=== PATIENT | male | born 1980 | race Caucasian/White ===

== ENCOUNTER 2025-08-24 14:56 | Outpatient (AMB) | payer OTHER, SELFPAY ==
--- NOTE | 2025-08-24 15:04 | MHC.OFFVIS ---
Intake Visit Reasons: second opiniononpostvasectomycomplications SET UA Intake Note: New Patient is present for 2nd Opinion Vasectomy complications Urology Rx:none Blood Thinners:none Imaging completed: none Rental Car Ferry Driver Required: No Accompanied by: Self / Same As Patient Allergies No Known Allergies Allergy (Verified 08/24/25 15:08) HPI Comments Details: Shane is a pleasant male. He is a patient of Dr. Lorenzana. He is seen for the following urologic conditions - post vasectomy pain Post vasectomy pain Vasectomy performed May 2024 Primarily describes intermittent pain the few minutes before and after climax Recurs on the left side Discussed physiology behind ejaculation On exam has increased sensitivity over the area vasectomy on the left side Options presented including conservative therapy versus microscopic inguinal denervation Review in six-month Review of Systems Const Denies chills and Denies fever(s) Card Reports no additional complaints and Denies syncope Resp Denies cough GI Denies abdominal pain and Denies heartburn Reports as per HPI and Denies change in libido Neuro Denies syncope Psych Denies change in libido Endo Denies change in libido Physical Exam Const General: cooperative, healthy appearing, comfortable and no acute distress Orientation/consciousness: patient oriented x3 HEENT Face and sinus: Yes normal facial exam Mouth: moist mucous membranes Neck Neck: Yes normal visual inspection, Yes full ROM and Yes trachea midline Chest Chest palpation & inspection: normal inspection of the chest Resp Effort & Inspection: normal respiratory effort, able to speak in complete sentences and no respiratory distress GI Inspection: Yes normal to inspection Back/Spine/Pelvis Cervical Spine: normal cervical lordosis Thoracic/Lumbar Spine: thoracic and lumbar spine normal to inspection Skin General skin exam: no rashes or lesions noted Neuro General: patient oriented x3, gait normal, tone normal and moves all extremities Extrem General: Yes normal to inspection and Yes capillary refill normal Results AMB Urinalysis, Automated UA Leukoctes 0 James/uL Last Edit by AMY Dotson on 08/24/25 15:17 UA Nitrite Negative Last Edit by AMY Dotson on 08/24/25 15:17 UA Urobilinogen 0.2 mg/dL Last Edit by AMY Dotson on 08/24/25 15:17 UA Protein 0 mg/dL Last Edit by AMY Dotson on 08/24/25 15:17 UA pH 6.0 Last Edit by Janell Colon, CCMA on 08/24/25 15:17 UA Blood 0 Jeremiah/uL Last Edit by Janell Colon, [facility] on 08/24/25 15:17 UA Specific [place] 1.020 Last Edit by Janell Colon, [facility] on 08/24/25 15:17 UA Ketone Negative Last Edit by Janell Colon, [facility] on 08/24/25 15:17 UA Bilirubin 0 mg/dL Last Edit by Janell Colon, [facility] on 08/24/25 15:17 UA Glucose 0 mg/dL Last Edit by Janell Colon, [facility] on 08/24/25 15:17 Results Reviewed Results Reviewed: Laboratory Last Values Urine pH (Auto) 6.0 08/24/25 15:10 Specific [place] (Auto) 1.020 08/24/25 15:10 Urine Protein (Auto) 0 mg/dL 08/24/25 15:10 Glucose (UA)(Auto) 0 mg/dL 08/24/25 15:10 Urine Ketones (Auto) Negative 08/24/25 15:10 Urine Blood (Auto) 0 Jeremiah/uL 08/24/25 15:10 Urine Nitrite (Auto) Negative 08/24/25 15:10 Urine Bilirubin (Auto) 0 mg/dL 08/24/25 15:10 Urine Urobilinogen (Auto) 0.2 mg/dL 08/24/25 15:10 Leukocyte Esterase (Auto) 0 James/uL 08/24/25 15:10 Assessment & Plan Assessment & Plan (1) Deep inguinal pain, left: Code(s): R10.32 - Left lower quadrant pain Category: Medical Plan Six-month follow-up Orders: Orders AMB Urinalysis Automated Today N13.8 - Other obstructive and reflux uropathy, N40.1 - Benign prostatic hyperplasia with lower urinary tract symptoms Patient Instructions: This note is constructed using voice recognition software. While every effort has been made to ensure accuracy hypoid gear tester errors may have been included. Imaging studies, laboratory and physical exam results were discussed and reviewed in detail. No major barriers to patient understanding were identified. An opportunity to ask questions regarding the treatment plan was provided. All questions were answered. The patient expressed understanding and agreement with the above treatment plan. The patient is aware they should contact our office by phone for worsening of their current condition or the appearance of new urologic symptoms. Compliance is encouraged with any medications and followup testing that is ordered. It is a privilege to participate in the urologic care of your patient. If you have any questions or concerns regarding treatment for the above conditions, or other urologic issues, please do not hesitate to contact me. The office telephone contact is [phone]. Sincerely, Dr Kehinde Lloyd MD, [facility] - Urology Compassionate Specialist Care for the Genitourinary System Coding Level of Care Code New Pt Level 3 (51935) Diagnoses Deep inguinal pain, left R10.32
--- OUTSIDE RECORDS SUMMARY | 2025-08-24 19:17 | XMS_ITS | Encounter Summary ---
Author Organization [facility] Address [address] [place] [phone] Phone Care Team Providers Care Cardiac Rn Name Role Phone Rickey Lorenzana DO Primary Care Provider Encounter Details Date Type Department Care Team (Late st Contact Info) Description 07/14/2018 Procedure Pass [facility] Endoscopy Admitting Dept Virtual Department [address] [place] [id number] Social History Tobacco Use Types Packs/Day Years Used Date Smoking Tobacco: Never Smokeless Tobacco: Never Alcohol Use Standard Drinks/Week Comments Yes 0 (1 standard drink = 0.6 oz pur e alcohol) 3-4 drinks per week Sex and Gender Information Value Date Recorded Sex Assigned at Male 06/27/2018 8:21 PM EDT Legal Sex Male 9:23 PM EDT Gender Identity Male 06/27/2018 8:21 PM EDT Sexual Orientation Straight 06/27/2018 8: 21 PM EDT documented as of this encounter Plan of Treatment Upcoming Encounters Date Type Department Care Team (Late st Contact Info) Description 10/28/2025 2:00 PM EST Office Visit [facility] [address] [place] [phone] Shannan Nagel CNP [address] [place] [address] documented as of this encounter Visit Diagnoses Not on filedocumented in this encounter Care Teams Cardiac Rn Relationship Specialty Start Date End Date Rickey Lorenzana DO [email or web address] PCP - General Internal Medicine 06/27/18 documented as of this encounter Additional Source Comments The information contained in this document represents components of the legal health record. It is not the complete legal health record.[facility]
--- OUTSIDE RECORDS SUMMARY | 2025-08-24 19:17 | XMS_ITS | Clinical Summary ---
Author Organization [facility] Address [address] [place] [phone] Phone Care Team Providers Care Entertainment Usher Name Role Phone Rickey Lorenzana Primary Care Provider [phone] Allergies No known active allergies Medications fluticasone propionate (FLOVENT HFA) 110 mcg/actuation inhaler Flovent HFA 110 mcg/actuation aerosol inhaler Active gemfibrozil (LOPID) 600 MG tablet gemfibrozil 600 mg tablet Active montelukast (SINGULAIR) 10 mg tablet montelukast 10 mg tablet Active albuterol 90 mcg/actuation inhaler ProAir HFA 90 mcg/actuation aerosol inhaler Active omeprazole (PRILOSEC) 20 MG capsule Take 1 capsule by mouth daily. Active cholecalciferol (VITAMIN D3) 2,000 unit capsule Take 1 capsule by mouth daily. Active Immunizations Immunization Administration Dates Next Due COVID-19 (Pre-07/01) Pfizer Vaccine, mRNA, PF 05/30/2022,06/29/2021,12/14/2020,2020 Influenza Quadrivalent MDCK Preservative Free IM 06/22/2020,07/04/2018 Influenza Quadrivalent Prese rvative Free IM 09/16/2016 Influenza Quadrivalent w/ Preservative IM 06/29/2022,06/29/2021,07/22/2018 Td (adult),2 Lf Tetanus Toxo id, PF, Adsorbed 02/08/2010 Tdap 11/19/2007 Social History Tobacco Use Types Packs/Day Years Used Date Smoking Tobacco: Never Smokeless Tobacco: Never Alcohol Use Standard Drinks/Week Comments Yes 0 (1 standard drink = 0.6 oz pur e alcohol) 3-4 drinks per week Education Answer Date Recorded Are you interested in more education? Not on melissa e 01/04/2023 Are you concerned about learning? Not on file 01/04/2023 No 01/04/2023 No 01/04/2023 Digital Access Answer Date Recorded No 02/01/2023 No 02/01/2023 Reliable internet access at home? Not on file 02/01/2023 Device with a working camera? Not on file Sex and Gender Information Value Date Recorded Sex Assigned at Male 06/27/2018 8:21 PM EDT Legal Sex Male 9:23 PM EDT Gender Identity Male 06/27/2018 8:21 PM EDT Sexual Orientation Straight 06/27/2018 8: 21 PM EDT Last Filed Vital Signs Vital Sign Reading Time Taken Comments Blood Pressure 120/70 02/03/2025 3:36 PM EDT Pulse 90 02/03/2025 3:36 PM EDT Temperature 36.6 C (97.8 F) 02/03/2025 3:36 PM EDT Respiratory Rate 16 07/14/2018 2:52 PM EST Oxygen Saturation 97% 02/03/2025 3:36 PM EDT Inhaled Oxygen Concentration - - Weight 112.5 kg (248 lb) 07/14/2018 1:20 PM EST Height 182.9 cm (6') 07/14/2018 1:20 PM EST Body Mass Index 33.63 07/14/2018 1:20 PM EST Plan of Treatment Upcoming Encounters Date Type Department Care Team (Late st Contact Info) Description 10/28/2025 2:00 PM EST Office Visit [facility] [address] [place] [phone] Shannan Nagel CNP [address] [place] [address] [email or web address] Health Maintenance Due Date Last Done Comments DEPRESSION SCREENING 1991 HEPATITIS C SCREENING 1997 HIV ONE-TIME SCREENING (18-65 YEARS) 1997 Adult Td,Tdap Booster 02/09/2020 02/08/2010, 008 COLOGUARD 2024 COLONOSCOPY 2024 COLORECTAL CANCER SCREENING 2024 FIT TEST 2024 FOBT 2024 SIGMOIDOSCOPY 2024 VIRTUAL COLONOSCOPY 2024 INFLUENZA VACCINE (#1) 2025 , 06/29/2021, 06/22/2020, Additional history exists LIPID PANEL 05/03/2025 05/03/2020 COVID-19 VACCINE ( season) 2025 05/30/2022, 06/29/2021, 12/14/2020, Additional history exists SMOKING STATUS SCREENING (Once After 26 Yrs) Completed 02/17/2025 HEPATITIS A VACCINES Aged Out No long er eligible based on patient's age to complete this topic HIB VACCINES Aged Out No longer eligi ble based on patient's age to complete this topic MENINGOCOCCAL VACCINES (ACWY) Aged Out No longer eligible based on patient's age to complete this topic MENINGOCOCCAL VACCINES (B) Aged Out N o longer eligible based on patient's age to complete this topic PNEUMOCOCCAL VACCINES (0-49 years) Aged Out No longer eligible based on patient's age to complete this topic Medical Devices Implanted Type Area Paraplanner Device Identifier Shelf Expiration Date Model / Serial / Lot Wrist Description:Screw left wrist Procedures Procedure Name Priority Date/Time Associated Diagnosis Comments LIPID PANEL Routine 05/03/2020 8:24 AM EDT Hyperlipidemia, unspecified hyperlipidemia type Vitamin D deficiency Gastroesophageal reflux disease, esophagitis presence not specified from Last 3 Months or Most Recently Relevant to Health Maintenance Results * Lipid panel (05/03/2020 8:24 AM EDT) HDL 37 mg/dL [facility] Comment: Interpretation <40 mg/dL: Low HDL cholesterol (major risk factor for CHD) Greater than or equal to 60 mg/dL: High HDL cholesterol ( negative risk factor for CHD) HDL - cholesterol is affected by a number of factors, e.g. smoking, excerise, hormones, sex and age. CHOLESTEROL 173 0 - 240 mg/dL [facility] TRIGLYCERIDES 153 30 - 160 mg/dL [facility] LDL 105 50 - 129 mg/dL [facility] Comment: LDL levels in terms of risk for coronary heart disease: <100 mg/dL: Optimal 100-129 mg/dL: Near or above optimal 130-159 mg/dL: Borderline high 160-189 mg/dL: High >190 mg/dL: Very High CARDIAC RISK RATIO 4.7 3.4 - 5.0 C [facility] Blood 05/03/2020 8:24 AM EDT 05/03/2020 8:27 AM EDT us Shannan DONATO LAB BLOOD BKR ORDERABLES Fi nal Result [address] [phone] from Last 3 Months or Most Recently Relevant to Health Maintenance [facility] EPO [employer] [facility] POS EPO [facility] EPO [employer] H[employer] POS EPO Care Teams Entertainment Usher Relationship Specialty Start Date End Date Rickey Lorenzana DO [email or web address] PCP - General Internal Medicine 06/27/18 Additional Source Comments The information contained in this document represents components of the legal health record. It is not the complete legal health record.[facility]
--- OUTSIDE RECORDS SUMMARY | 2025-08-24 19:18 | XMS_ITS | Data Portability ---
Author Organization [facility], Telehealth Patient Home Address [address] [place] [address] Assessment No assessment recorded. Plan of Treatment Reminders Order Date Submit Date Provider Last Modified By Organization Details Last Modified Time Details Appointments None recorded. Lab CMP, serum or plasma [facility], [place], [address], 15:55:19 lipid panel, blood 2021 [facility], [place], [address], 15:55:19 CBC w/ auto diff 2021 [facility], [place], [address], 15:55:19 vitamin D, 25-hydroxy , total, serum 2021 [facility], [place], [address], 15:55:18 lipid panel, serum 2021 [facility], [place], [address], 16:15:09 CMP, serum or plasma 2021 [facility], [place], [address], 2 16:15:09 CBC w/ auto diff 2021 022 [facility], [place], [address], 2 16:15:09 PSA, serum or plasma 2021 022 [facility], [place], [address], 2 16:15:08 hemoglobin A1C/hemogl obin total, QN, blood 2021 022 [facility], [place], [address], 2 16:15:09 Referral urologist referral 2024 025 elida Lloyd MD, [address] [place] [address], [address], 5 08:40:23 general surgeon referral 2024 025 elida Leo MD, [address] [place] [address], [address], 5 09:36:24 urologist referral 2023 024 elida Allison MD, [address] [place] [address], [address], 4 08:33:32 urologist referral 2021 022 [email or web address] 10 [facility], [address] [place] [address], [address], 2 09:35:51 orthopedic surgeon referral 2021 022 [email or web address] 10 [facility], [address] [place], [address], 2 09:35:49 Procedures None recorded. Surgeries None recorded. Imaging XR, knee, 3 view 2024 025 [facility] Central Scheduling (Not Breast), [address] [place], [address], 5 08:15:21 Medication Orders clotrimazo le-betamet hasone 1 %-0.05 % topical cream 2024 025 [facility]/Pharmacy #5, [address] [place], [address], 5 11:13:46 albuterol sulfate HFA 90 mcg/actuat ion aerosol inhaler 2024 025 [facility]/Pharmacy #2024, [address] [place], [address], 5 14:34:39 triamcinol one acetonide 0.1 % topical cream 2023 024 [facility]/Pharmacy #2024, [address] [place], [address], 4 11:56:34 amoxicilli n 875 mg tablet 2023 025 [facility]/Pharmacy #2024, [address] [place], [address], 5 14:16:32 Flovent HFA 110 mcg/actuat ion aerosol inhaler 2021 022 [facility]/Pharmacy #0447, [address] [place] [address], [address], 3 10:04:16 gemfibrozi l 600 mg tablet 2021 022 [facility]/Pharmacy #0447, [address] [place] [address], [address], 2 15:57:54 Flovent HFA 110 mcg/actuat ion aerosol inhaler 2021 022 [email or web address] [facility]/Pharmacy #2024, [address] [place], [address], 3 10:04:16 montelukas t 10 mg tablet 2021 022 ABILIO [facility]/Pharmacy #2024, [address] [place], [address], 2 16:10:02 Patient TargetsNo targets recorded. Patient InstructionsNo instructions recorded. Reason for Referral Orthopedic Surgeon Referral for Tear of meniscus of knee left lateral mensicus tear, continued pain on the left side for three years Referring Physician: Shannan Cruz, Internal Medicine, Encounter Date: 05/29/2022 Urologist Referral for Vasec shani requested would like to discuss getting a vasectomy Referring Physician: Shannan Cruz [facility], Encounter Date: 05/29/2022 Urologist Referral for Vasec shani requested would like a vasectomy Referring Physician: Shannan Cruz [facility], Encounter Date: 01/21/2024 General Surgeon Referral for Mass of head cyst on the head, would like to have it removed Referring Physician: Shannan [facility], Encounter Date: 11/13/2024 Urologist Referral for 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 Problems Name Problem SNOMED Code Status Onset Date Resolution Date Notes Provider Name and Address Organization Details Recorded Time Asthma 100526660 Active 2017 Not Available [facility] 3 14:13:36 Hyperchol esterolem ia 29708810 Active 2017 Not Available [facility] 3 14:13:35 Vitamin D deficienc y 32157694 Active 2017 Not Available [facility] 3 14:13:36 Tear of meniscus of knee 339771075 Active 2021 [facility] Available [facility] 3 14:13:36 Hyperlipi demia 73277619 Active 2021 Not Available [facility] 3 14:13:36 COVID-19 516949841 Active 2022 Not Available [facility] 3 14:13:36 Generaliz ed rash 250252322 Active 2023 TANMAY BROWN [address] [place] [address], [address], [facility] 4 11:46:57 Celluliti s 348934426 Active 2023 TANMAY BROWN [address] [place] [address], [address], [facility] 4 11:47:44 Internal hemorrhoi ds 35379630 Active 2023 TANMAY BROWN [address] [place] [address], [address], [facility] 4 11:50:32 Pain of right knee joint 912475703160 100 Active 2024 TANMAY BROWN [address] [place] [address], [address], [facility] 5 14:32:01 Mass of head 340319813 Active 2024 TANMAY BROWN [address] [place] [address], [address], [facility] 5 14:35:19 Pruritic dermatiti s Active 2024 TANMAY BROWN [address] [place] [address], [address], [facility] 5 11:12:21 Open wound of penis 500347730 Active 2024 TANMAY BROWN [address] [place] [address], [address], [facility] 11:15:25 Problem Notes None recorded. Medical Equipment None Reported. Allergies No known drug allergies Medications Name Sig Start Date Stop Date Status Note LastModified by Organization Details LastModified Time doxycycline hyclate 100 mg capsule Take 1 capsule twice a day by oral route. 02/18 completed Not Available Not Available Not Available tramadol 50 mg tablet TAKE 1 TABLET BY MOUTH EVERY 6 HOURS NEEDED 11/13 completed Not Available Not Available Not Available triamcinolo ne acetonide 0.1 % topical cream APPLY THIN COAT TO AFFECTED AREA TWICE A DAY active Not Available Not Available No t Available amoxicillin 875 mg tablet TAKE 1 TABLET BY MOUTH EVERY 12 HOURS FOR 7 DAYS 11/13 completed Not Available Not Available Not Available gemfibrozil 600 mg tablet TAKE 1 TABLET BY MOUTH TWICE A DAY 2024 active Not Available Not Available Not Avai lable clotrimazol e-betametha sone 1 %-0.05 % topical cream PLEASE SEE ATTACHED FOR DETAILED DIRECTION S active Not Available Not Available No t Available Qvar 40 mcg/actuati on Metered Aerosol oral inhaler 12/09 completed Not Available Not Available Not Available omeprazole 20 mg capsule,del ayed release TAKE 1 CAPSULE BY MOUTH EVERY DAY active Not Available Not Available No t Available montelukast 10 mg tablet TAKE 1 TABLET BY MOUTH EVERY DAY active Not Available Not Available No t Available albuterol sulfate HFA 90 mcg/actuati on aerosol inhaler TAKE 2 PUFFS BY MOUTH EVERY 4 HOURS NEEDED active Not Available Not Available No t Available Vitamin D 50,000 unit capsule active Not Available Not Available Not Available Flovent HFA 110 mcg/actuati on aerosol inhaler 04/22 completed Not Available Not Available Not Available multivitami n daily active OTC Not Available Not Available Not Available Advair HFA 115 mcg-21 mcg/actuati on aerosol inhaler Inhale 2 puffs twice a day by inhalatio n route. 2022 active Not Available Not Available Not Avai lable budesonide- formoterol HFA 160 mcg-4.5 mcg/actuati on aerosol inhaler INHALE 1 PUFF BY MOUTH EVERY DAY active Not Available Not Available No t Available Vitamin D3 50 mcg (2,000 unit) capsule Take 1 unit every day by oral route. active Not Available Not Available No t Available Qvar RediHaler 40 mcg/actuati on HFA breath activated aerosol 2 puffs BID 02/18 completed Not Available Not Available Not Available [employer] COVID-19 Ag Self Test kit TEST DIRECTED TODAY 02/26 completed Not Available Not Available Not Available Paxlovid 300 mg (150 mg x 2)-100 mg tablets in a dose pack TAKE 3 TABLETS BY MOUTH TWICE A DAY DIRECTED FOR 5 DAYS 04/22 completed Not Available Not Available Not Available Vitals Date Recorded Body height Body mass index (BMI) Body weight Heart rate Oxygen saturation Systolic And Diastolic Provider Name and Address Organization Details Last Updated DateTime 180.34 cm 36.5 kg/m2 496539. 2 g 89 /min 96 % 130/80 mm[Hg] Lola Bourgeois [facility] 14:17:51 Date Recorded Body height Oxygen saturation Heart rate Systolic And Diastolic Provider Name and Address Organization Details Last Updated DateTime 12/12/2021 181.61 cm 95 % 84 /min 130/80 mm[Hg] Cady Mercedes [facility] 12/12/2021 15:45:33 Date Recorded Body weight Heart rate Oxygen saturation Systolic And Diastolic Provider Name and Address Organization Details Last Updated DateTime 01/21/2024 150689.08 g 103 /min 98 % 136/84 mm[Hg] Kami Edgar [facility] 01/21/2024 11:20:22 Date Recorded Body height Body weight Heart rate Oxygen saturation Systolic And Diastolic Provider Name and Address Organization Details Last Updated DateTime 04/16/2025 180.34 cm 260551.3 9 g 90 /min 95 % 148/84 mm[Hg] Kami Edgar [facility] 11:02:38 Date Recorded Body height Body mass index (BMI) Body weight Oxygen saturation Heart rate Systolic And Diastolic Provider Name and Address Organization Details Last Updated DateTime 181.61 cm 35.6 kg/m2 102171. 14 g 98 % 85 /min 130/74 mm[Hg] Cady Mercedes [facility] 2 15:40:37 Social History Question Answer Notes LastModified by Organizat ion Details LastModified Time Tobacco Smoking Status Former Smoker Not Available [facility] 07/12/2020 03:36:23 What Was The Date Of Your Most Recent Tobacco Screening? 11/13/2024 [email or web address] Information not available 11/13/2024 Sex: Unknown Functional Status None recorded. Mental Status None recorded. Family History Nothing Reported. Medical History No medical history recorded. Immunizations Vaccine Type Date Status Note Provider Nam e and Address Organization Details Recorded Time COVID-19, mRNA, LNP-S, PF, 30 mcg/0.3 mL dose 1 completed [facility] 12/11/2021 11:17:37 COVID-19, mRNA, LNP-S, PF, 30 mcg/0.3 mL dose 1 completed Cady ku [facility] 12/11/2021 11:17:45 COVID-19, mRNA, LNP-S, PF, 30 mcg/0.3 mL dose 1 completed [facility] 12/11/2021 11:17:52 Influenza, split virus, quadrivalent, preservative 1 completed [facility] 12/11/2021 11:18:06 COVID-19, mRNA, LNP-S, PF, 30 mcg/0.3 mL dose 2 completed Rickey Lorenzana, [address], [place], [address] 06/03/2022 15:21:41 Influenza, split virus, quadrivalent, preservative 2 completed [facility] 07/04/2022 07:56:23 SARS-COV-2 (COVID-19) vaccine, UNSPECIFIED 3 [facility] 06/18/2023 08:41:54 influenza nasal, unspecified formulation 3 completed [facility] 06/18/2023 08:42:07 Influenza, split virus, quadrivalent, preservative 8 completed [facility] 10/01/2018 16:01:51 Influenza, split virus, quadrivalent, preservative 0 completed Rickey Lorenzana [address], [address], [facility] 06/25/2020 08:52:48 Past Encounters Encounter ID Performer Location Encounter Start Date Encounter Closed Date Diagnosis/Indication Diagnosis SNOMED-CT Code Diagnosis ICD10 Code Diagnosis IMO Codes Diagnosis Note [id number] Rickey Galeano Salomón [facility] [address] [facility],[place] [address] 01/08/2018 13:34:23 01/08/2018 14:00:55 Infected insect bite 819987771 L08.9 call for any concerns [id number] Rickey Lorenzana [facility] [address],[place] [address] 02/18/2018 09:26:27 02/18/2018 11:27:38 Mild intermittent asthma 998914025 J45.20 stable Hypertriglyceridemia 302 040445 E78.2 pt will begin after vacation to [place] Vitamin D deficiency 347 51042 E55.9 finish 12 week series high dose vitamin D, then we will recheck , will need OTC 2,000 IU daily [id number] Rickey PalafoxTye Lorenzana [facility] [address] [facility] [address] 07/04/2018 14:19:13 07/04/2018 16:22:11 Vitamin D deficiency 18621540 E55.9 to take 2,000 IU daily Hypercholesterolemia 136 25698 E78.00 triglyceri nella from 340 to 94 follow 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 [id number] Rickey PalafoxTye Lorenzana [facility] [address] [facility] [address] 10/01/2018 15:58:27 10/03/2018 11:23:44 Vitamin D deficiency 01507107 E55.9 labs prior to next visit/ needs to find new lab, [facility] [place] [employer] Hypercholesterolemia 136 27664 E78.00 Terminal e sophageal web 88700114 K22.2 s/p dilitation , no problems Asthma 722465017 J45.90 9 well controlled [id number] Rickey Lorenzana [facility] [address] [facility],[place] [address] 06/19/2019 11:01:43 06/19/2019 11:31:47 Hypercholesterolemia 25115231 E78.00 familial hypertrigl yceridemia on gemfibrozi l Asthma 613014928 J45.90 9 Vitamin D deficiency 347 15651 E55.9 Gastroesop hageal reflux disease 696666614 K21.9 Body mass index 30+ - obesity 611279252 Z68.33 Blood pres sure above reference range 50442518 R03.0 mild htn continue healthy diet and exercise and edwin loss and recheck in 6 months [id number] Rickey Lorenzana [facility] [address] [facility],[place] [address] 05/06/2020 14:35:27 05/06/2020 16:11:57 Asthma 703896150 J45.909 stable Hypercholesterolemia 136 39919 E78.00 stable Lateral epicondylitis 20 4935934 M77.10 will manage at home conservati vely and call if an issue or worse [id number] Rickey Lorenzana [facility] [address] [facility],[place] [address] 02/03/2021 13:16:53 02/03/2021 15:36:59 Active or passive immunization 881538511 Z23 advised Adult heal th examination 253290954 Z00.00 BP is fine needs fu BW Asthma 330119176 J45.90 9 stable Pain in left knee 783045 1576 11931 M25.562 will fu if it continues [id number] Rickey Lorenzana [facility] [address] [facility],[place] [address] 12/12/2021 15:35:51 12/13/2021 13:54:22 Asthma 785468828 J45.909 stable Hypercholesterolemia 136 54736 E78.01 needs recheck [id number] Rickey Lorenzana [facility] [address] [facility],[place] [address] 05/29/2022 15:34:48 05/30/2022 09:36:56 Active or passive immunization 663897192 Z23 advised Adult heal th examination 559123739 Z00.00 BP is fine needs fu BW Tear of me niscus of knee 172262438 S83.262A will fu with ortho referral Hyperlipidemia 94010207 E78.2 will send in refill Vasectomy requested 1838 79346 Z30.2 will set up with urology Asthma 371555343 J45.90 9 stable [id number] Rickey Lorenzana [facility] [address] [facility],[place] [address] 01/21/2024 11:07:03 01/21/2024 13:37:35 Depression screening 411993536 Z13.31 stable Generalized rash 0372819 06 R21 will start on combinatio n topical treatment Cellulitis 167932554 L03 .115 Internal hemorrhoids 904 16357 K64.8 Vasectomy requested 1838009 Z30.2 Dermoid cyst of head 830 047544 D36.7 [id number] [facility] [address] [facility],[place] [address] 11/13/2024 14:09:49 11/13/2024 15:40:29 Pain of right knee joint 6437535217 69465 M25.561 hx of mensicus tear in the L kneefeels the same, with instabilit y and medial joint line pain Asthma 847697646 J45.40 stable Hyperlipidemia 28381829 E78.2 no issues, tolerates med well Mass of head 573964786 R 22.0 will set up with gen surg referral [id number] [facility] [address] [facility],[place] [address] 04/16/2025 10:48:22 04/16/2025 11:40:58 Pruritic dermatitis 5543475618 L30.8 564 set up with topicaland fu in a few weeks to assess effectiven ess Open wound of penis 2103 02112 S31.20XA 9569560 needs alt uro referral Health Concerns Section Related Observation LastModified by Organization Detai ls LastModified Time None Recorded Concern Status LastModified by Organization Details LastModified Time None Recorded Advance Directives Directive None Recorded Payers Insurance Date Sequence Insurance Name Policy Number Policy [place] Covered Member ID [place] Member ID Guarantor Name 04/17/2025 1 [employer] [id number] Shane Heller [id number] Shane Heller Notes Date Note Type Note Provider Name a nd Address Organization Details Recorded Time 2 text/html ROS as noted in the HPI medication f/u asthma: stableno recent flare ups the patient is working on exercise and diet HLD: needs recheck BW TANMAY BROWN [address] [place] [address], [phone], [facility] 12/12/2021 16:15:18 2 text/html Annual WellnessReported by PatientSocial/Behavio ral HistoryFor diet and nutrition, patient reportshealthy diet,discussed vitamin and supplement use,discussed portion control,discussed maintaining calcium balance, anddiscussed diet improvement. For fracture risk, patient reportsno history of fractures,no recent explained fracture,no sudden unexplained fractures, andno previous musculoskeletal injuries(thinks he tore his meniscus 3 years ago (left knee) has some stiffness and pain). For physical activity, patient reportsexercises on a regular basis,recent increase in physical activity, andgood physical condition. For additional lifestyle factors, patient reportsno tobacco useanddrinks alcohol (mild-moderate).Menta l Status:For depression risk, patient reportsnever feels sad, empty, or tearful,no loss of interest in activities,no significant changes in weight,no sleep disturbances or insomnia,no agitation,no loss of energy,no feelings of worthlessness or guilt,no thoughts of suicide,no history of depression, andno history of mood disorders.Functional AbilityFor hearing, patient reportsno loss of hearing. For vision, patient reportsno vision problems. TANMAY BROWN [address] [place], [address], [facility] 05/29/2022 16:06:46 4 text/html ROS as noted in the HPI c/o rash inflammation around previous rash, papular, red anterior right shinlooks like it could now be developing an infectionstart on topical steriod and oral abx has internal hemorrhoidno excess bleedinghas issues with hard stool but uses stool softeners and it improvesuses prep Hno other symptoms, controlledwill monitor needs another uro referral has a dermoid cyst of the scalp, has had it for 10+ yearswould like to have it removed possiblywill get back to me if he would like to go through with the referral TANMAY BROWN [address] [place], [address], [facility] 01/21/2024 11:59:57 5 text/html ROS as noted in the HPI medication/right knee pain right knee pain, started after he was jogging on vacation, felt popping and then medial joint line pain, hx of L meniscus tear feels the same as thatsome instability asthma stable, uses inhaler sparingly HLD: stable, needs refill cyst on the head, would like it removed now since it is bothering him now TANMAY BROWN [address] [place], [address], [facility] 11/13/2024 14:40:51 5 text/html ROS as noted in the HPI c/o itching legs the patient reports that he developed itching of his legs about 3 mos ago the patient denies any contact from new lotion, shampoo, detergent, cloth, animal, plant, foodlooks like dermatitis, probable eczema, skin is dry and irritated from him scratching recommended he start on topical anti fungal and topical steroid the patient is having issues with his urologist, who also be retiring, will change referral to an [facility] urologist for evaluation of complication from his vasectomy TANMAY BROWN [address] [place], [address], [facility] 04/16/2025 11:22:29
--- OUTSIDE RECORDS SUMMARY | 2025-08-24 19:18 | XMS_ITS | Encounter Summary ---
Author Organization [facility] Address [address] [place] [address] Phone Care Team Providers Care Painting Trades Worker Name Role Phone Rickey Lorenzana DO Primary Care Provider [phone] Encounter Details Date Type Department Care Team (Late st Contact Info) Description 06/27/2018 Procedure Pass [facility] Admitting Dept Virtual Department [address] [place] [id number] Social History Tobacco Use Types Packs/Day Years Used Date Smoking Tobacco: Never Smokeless Tobacco: Never Alcohol Use Standard Drinks/Week Comments Yes 0 (1 standard drink = 0.6 oz pur e alcohol) Sex and Gender Information Value Date Recorded Sex Assigned at Male 06/27/2018 8:21 PM EDT Legal Sex Male 9:23 PM EDT Gender Identity Male 06/27/2018 8:21 PM EDT Sexual Orientation Straight 06/27/2018 8: 21 PM EDT documented as of this encounter Plan of Treatment Upcoming Encounters Date Type Department Care Team (Late st Contact Info) Description 10/28/2025 2:00 PM EST Office Visit [facility] [address] [place] [id number] Shannan Nagel CNP [address] [place] [address] [email or web address] documented as of this encounter Visit Diagnoses Not on filedocumented in this encounter Care Teams Painting Trades Worker Relationship Specialty Start Date End Date Rickey Lorenzana DO [email or web address] PCP - General Internal Medicine 06/27/18 documented as of this encounter Additional Source Comments The information contained in this document represents components of the legal health record. It is not the complete legal health record.[facility]
--- OUTSIDE RECORDS SUMMARY | 2025-08-24 19:18 | XMS_ITS | Encounter Summary ---
Author Organization [facility] Address [address] [place] [id number] Phone Care Team Providers Care Senior Clinician Name Role Phone Rickey Lorenzana Primary Care Provider [phone] Encounter Details Date Type Department Care Team (Latest Contact Info) Description 11/13/2024 Transcribe Orders Virtual Department [address] [place] [address] Shannan Cruz PA [address] [place] [address] [place] [address] Right knee pain, unspecified chronicity (Primary Dx) Social History Tobacco Use Types Packs/Day Years [...] Description 10/28/2025 2:00 PM EST Office Visit [facility] [address] [place] [address] Robe Shannan Israele, UMANG [address] [place] [address] [email or web address] Scheduled Orders Name Type Priority Associated Diagnoses Orde r Schedule XR Knee (Right) Imaging Routine Right knee pain, unspecified chronicity Expected: 11/13/2024, Expires: 11/13/2025 documented as of this encounter Visit Diagnoses Diagnosis Right knee pain, unspecified chronicity- Primary documented in this encounter Care Teams Senior Clinician Relationship Specialty Start Date End Date Rickey Lorenzana DO [email or web address] PCP - General Internal Medicine 06/27/18 documented as of this encounter Additional Source Comments The information contained in this document represents components of the legal health record. It is not the complete legal health record.[facility]
== END 2025-08-24 16:13 | disposition home or self-care (01) ==
LOC: HO.HUSH 14:57
PROVIDERS: PCP Internal Medicine; Visit Provider Urology
DX: N40.1 Benign prostatic hyperplasia with lower urinary tract symptoms (principal); N13.8 Other obstructive and reflux uropathy; R10.32 Left lower quadrant pain
CPT/HCPCS: 99203

== ENCOUNTER → 2025-08-24 14:56 | Outpatient (BNVA) | payer OTHER, SELFPAY | PROVIDERS: PCP Internal Medicine; Visit Provider Urology | DX: R10.32 Left lower quadrant pain (principal); N40.1 Benign prostatic hyperplasia with lower urinary tract symptoms; N13.8 Other obstructive and reflux uropathy | CPT/HCPCS: 81003 ==